=== PATIENT | female | born 1925 | race Caucasian/White ===

== ENCOUNTER 2017-06-26 12:10 | Emergency (ER) | payer OTHER ==
[~2017-06-26] VITALS: Ht 162.6 cm; Wt 49.5 kg
[~2017-06-26 12:10] MED LIST: ANALGESIC325 M1 PO; CALCIUM + D TA1 EACH PO; FISH OIL SOFTG1 EACH PO; HYDROCHLOROTHIA25 MG PO; LIDODERM 5% P1 PATCH TD; MOTRIN600 MG PO; NORCO 5/3251 TABLET PO; OSTEO-BIFLE1 CAPSULE PO; PROCARDIA XL60 MG PO; ULTRACET1 TABLET PO; VALIUM2 MG PO; VITAMIN B6100 MG PO; ZESTRIL40 M1 PO
[2017-06-26 14:28] LABS: APPEARANCE SL.HAZY ((CLEAR)); BILIRUBIN NEGATIVE; BLOOD NEGATIVE; COLOR YELLOW ((YELLOW)); GLUCOSE (STRIP) NEGATIVE; KETONES 20; LEUKOCYTES NEGATIVE; NITRITE NEGATIVE; PROTEIN (STRIP) 30; SPECIFIC GRAVITY 1.027 (1.000-1.030)
[2017-06-26 14:32] LABS: BACTERIA RARE /HPF; EPITHELIAL CELLS RARE /HPF; MUCUS 2+ /LPF; RED BLOOD CELLS 0-5 /HPF (0-5); WHITE BLOOD CELLS 0-5 /HPF (0-5)
[2017-06-26] MEDS ORDERED: STOOL SOFTENER250 MG PO (15:27)
[2017-06-26] MEDS ORDERED: PERCOCET 5/31 TABLET PO (15:27)
[2017-06-26 15:51] VITALS: BP 186/77
== END 2017-06-26 15:52 | disposition home or self-care (01) ==
LOC: EME 12:10 → RME 12:10
PROVIDERS: Nurse Practitioner Family
DX: M48.56XA Collapsed vertebra, not elsewhere classified, lumbar region, initial encounter for fracture (principal); M81.0 Age-related osteoporosis without current pathological fracture; I10 Essential (primary) hypertension
CPT/HCPCS: 81003; 99281; 99284

== ENCOUNTER 2017-09-15 11:05 | Inpatient (IN) | payer OTHER ==
[~2017-09-15] VITALS: Ht 157.5 cm; Wt 43.2 kg
[2017-09-15] VITALS (20 sets, daily range): BP systolic 119–177; BP diastolic 50–82
[~2017-09-15 11:05] MED LIST changes: +PERCOCET 5/31 TABLET PO; +STOOL SOFTENER250 MG PO
[2017-09-15 11:28] LABS: BASOPHIL (%) 0.3 % (0-1); BASOPHIL COUNT 0.1 K/uL (0-0.1); EOSINOPHIL (%) 0.1 % (0-5); HEMATOCRIT 36.2 % (36.0-46.0); HEMOGLOBIN 12.3 G/DL (11.9-15.5); LYMPHOCYTE (%) 9.4 % (15-42); LYMPHOCYTE COUNT 2.6 K/uL (1.0-2.8); MCH 30.4 PG (29.0-34.0); MCV 89.6 FL (83-99); MONOCYTE (%) 7.2 % (3-12); NEUTROPHIL COUNT 22.3 K/uL (1.8-6.4); PLATELET COUNT 169 K/uL (156-360); RBC DIS.WIDTH-CV 16.2 % (11.8-14.6); RBC DIS.WIDTH-SD 53.8 % (39-53); RED BLOOD COUNT 4.04 M/uL (3.80-5.20); WHITE BLOOD COUNT 27.5 K/uL (4.1-10.2)
[2017-09-15 11:37] LABS: AMYLASE 79 IU/L (1-118); CHLORIDE 103 mEq/L (99-109); POTASSIUM 3.7 mEq/L (3.7-5.4); PTT 22.9 SEC (25-37); SODIUM 136 mEq/L (136-147)
[2017-09-15 11:39] LABS: GLUCOSE 216 mg/dL (70-99)
[2017-09-15 11:42] LABS: SERUM ETHYL ALCOHOL < 10 mg/dL
[2017-09-15 11:43] LABS: CREATININE 0.8 mg/dL (0.6-1.3); GFR ESTIMATE (CALCULATED) > 59 mL/min/
[2017-09-15 11:44] LABS: UREA NITROGEN (BUN) 15 mg/dL (9-23)
[2017-09-15 11:46] LABS: LIPASE 12 U/L (1.0-51.0)
[2017-09-15 11:49] LABS: TROP-I INTERPRETATION NEGATIVE; TROPONIN-I 0.02 ng/mL (0.0-0.30)
[2017-09-15 12:56] LABS: BASE EXCESS -4.8 mEq/L (-3 to +3); BICARBONATE 19.5 mEq/L (22-26); CARBOXY HGB 1.8 % (0-5); METHEMOGLOBIN 1.5 % (0-1.5); PCO2 33 mm Hg (35-45); PO2 176 mm Hg (80-100); pH 7.38 (7.35-7.45)
[2017-09-15 12:57] LABS: COMMENTS - BLOOD GASES A+C+; DEVICE VENT; FI02 40 %; MECHANICAL RATE 12 resp/min; MODE AC; PEEP 5 CM/H20; SITE RR; TIDAL VOLUME 400 ML; TOTAL RESP RATE 18 resp/min
[2017-09-15] MEDS ORDERED: PRINIVIL20 MG PO (14:02)
[2017-09-15] MEDS ORDERED: ASPIRIN325 MG PO (14:03)
[2017-09-15 14:27] LABS: BASE EXCESS -4.9 mEq/L (-3 to +3); BICARBONATE 19.5 mEq/L (22-26); CARBOXY HGB 1.7 % (0-5); COMMENTS - BLOOD GASES A+C+; DEVICE 840; FI02 40 %; METHEMOGLOBIN 1.6 % (0-1.5); PCO2 33 mm Hg (35-45); PO2 163 mm Hg (80-100); SITE RR; pH 7.38 (7.35-7.45)
[2017-09-15 14:28] LABS: MECHANICAL RATE 24 resp/min; MODE AC; PEEP 5 CM/H20; TIDAL VOLUME 400 ML; TOTAL RESP RATE 24 resp/min
[2017-09-16] VITALS (20 sets, daily range): BP systolic 79–145; BP diastolic 46–59
[2017-09-16 05:53] LABS: HEMATOCRIT 32.9 % (36.0-46.0); HEMOGLOBIN 10.6 G/DL (11.9-15.5); MCH 29.6 PG (29.0-34.0); MCHC 32.2 G/DL (30.0-36.0); MCV 91.9 FL (83-99); PLATELET COUNT 182 K/uL (156-360); RBC DIS.WIDTH-CV 16.8 % (11.8-14.6); RBC DIS.WIDTH-SD 57.1 % (39-53); RED BLOOD COUNT 3.58 M/uL (3.80-5.20); WHITE BLOOD COUNT 25.4 K/uL (4.1-10.2)
[2017-09-16 06:06] LABS: CHLORIDE 106 MEQ/L (99-109); CREATININE 0.8 MG/DL (0.6-1.3); GFR ESTIMATE (CALCULATED) > 59 mL/min/; GLUCOSE 212 mg/dL (70-99); SODIUM 137 MEQ/L (136-147); UREA NITROGEN (BUN) 15 mg/dL (9-23)
[2017-09-17 09:09] VITALS: BP 114/80
== END 2017-09-17 10:46 | disposition hospice, home (50) | DRG 82 ==
LOC: TRA 11:05 → 4WEST 14:08 → EDOF 14:08 → ENRESERV 14:11 → EDOF 14:31 → ENRESERV 14:38 → 4WEST 15:54
PROVIDERS: Emergency Medicine; Internal Medicine Critical Care Medicine
DX: S06.4X9A Epidural hemorrhage with loss of consciousness of unspecified duration, initial encounter (principal); J96.90 Respiratory failure, unspecified, unspecified whether with hypoxia or hypercapnia; I10 Essential (primary) hypertension; S06.6X9A Traumatic subarachnoid hemorrhage with loss of consciousness of unspecified duration, initial encounter; S06.5X9A Traumatic subdural hemorrhage with loss of consciousness of unspecified duration, initial encounter; M43.12 Spondylolisthesis, cervical region; Z51.5 Encounter for palliative care; Z66 Do not resuscitate; S02.91XA Unspecified fracture of skull, initial encounter for closed fracture; W19.XXXA Unspecified fall, initial encounter
CPT/HCPCS: 36600; 70450; 71045; 72125; 80048; 81003; 82150; 82803; 83690; 84484; 85025; 85027; 85610; 85730; 86850; 86900; 86901; 87070; 87205; 87641; 93005; 94002; 94003; 99281; 99285; G0480; J7030; J7050; S0028